=== PATIENT | female | born 1950 | race Caucasian/White ===

== ENCOUNTER 2020-08-11 17:02 | Observation (INO) ==
[2020-08-11] MEDS ORDERED: 0.9 % Sodium Chloride 1,000 ML IVC ONE (17:31)
[2020-08-11 18:27] LABS: INR 1.1; Prothrombin Time 12.5 Seconds (9.4-12.1)
[2020-08-11 18:45] LABS: Bilirubin,Urine Negative (Negative); Blood,Urine Negative (Negative); Clarity,Urine Clear (Clear); Color,Urine Colorless (Yellow); Glucose,Urine (UA) Normal (Normal); Ketones,Urine Negative (Negative); Leukocyte Esterase,Urine Moderate (Negative); Mucus,Urine Few per lpf (None-Few); Nitrite,Urine Negative (Negative); Protein,Urine Negative (Neg-Trace); RBC,Urine 0-3 per hpf (0-3); Specific Gravity,Urine 1.008 (1.010-1.025); Squamous Epithelial Cell,Urine Moderate per hpf (None-Few); Urobilinogen,Urine Normal (Normal); WBC,Urine 0-3 per hpf (0-3)
[2020-08-11 18:46] LABS: BUN/Creatinine Ratio 10 (6-26); Blood Urea Nitrogen 9 mg/dL (8-23); Calcium 9.5 mg/dL (8.6-10.3); Carbon Dioxide 30 mEq/L (23-29); Chloride 100 mEq/L (98-107); Glucose 105 mg/dL (70-105); Osmolality,Calculated 287 (280-300); Potassium 2.3 mEq/L (3.5-5.1); Sodium 139 mEq/L (136-145); Troponin I 0.03 ng/mL (< 0.04); eGFR For African Americans > 60 (> 60); eGFR For Non-African Americans > 60 (> 60)
[2020-08-11] MEDS ORDERED: Potassium Chloride 40 MEQ, Lidocaine 1% 2 ML in 0.9 % Sodium Chloride 500 ML IVPB ONE (18:55)
[2020-08-11 18:59] LABS: Basophils # 0.1 K/mcL (0.0-0.2); Basophils % 0.8 %; Eosinophils # 0.2 K/mcL (0.0-0.6); Eosinophils % 2.2 %; Hemoglobin 12.8 g/dL (11.5-15.4); Immature Granulocytes % 0.4 % (0-4); Lymphocytes # 3.9 K/mcL (0.6-4.6); Lymphocytes % 35.6 %; Mean Corpuscular HGB Conc 32.8 g/dL (31.6-35.5); Mean Corpuscular Hemoglobin 29.7 pg (28.0-33.3); Mean Corpuscular Volume 90.5 fL (83.0-100.0); Mean Platelet Volume 8.7 fL (9.4-12.4); Neutrophils # 5.7 K/mcL (1.6-8.9); Platelet Count 297 K/mcL (140-400); Red Blood Count 4.31 M/mcL (3.82-4.97); Red Cell Distribution Width 13.7 % (11.5-14.5); White Blood Count 10.9 K/mcL (4.3-11.1)
[2020-08-11] MEDS ORDERED: Morphine Sulfate 2 MG/ML SYRINGE IVP ONE (19:19)
[2020-08-11] MEDS ORDERED: Naloxone 0.4 MG/ML INJ IVP PRN (20:38)
[2020-08-11] MEDS ORDERED: Acetaminophen 325 MG TABLET PO PRN (20:38)
[2020-08-11] MEDS ORDERED: Ondansetron ODT 4 MG TAB.RAPDIS SL PRN (20:38)
[2020-08-11 20:45] LABS: Magnesium 1.8 mg/dL (1.6-2.6)
[2020-08-11 21:21] LABS: Adenovirus Not Detected (Not Detect); Bordetella Pertussis Not Detected (Not Detect); Chlamydophila pneumoniae Not Detected (Not Detect); Coronavirus 229E Not Detected (Not Detect); Coronavirus HKU1 Not Detected (Not Detect); Coronavirus NL63 Not Detected (Not Detect); Coronavirus OC43 Not Detected (Not Detect); Human Metapneumovirus Not Detected (Not Detect); Human Rhinovirus/Enterovirus DETECTED (Not Detect); Influenza A Subtype 2009 H1 Not Detected (Not Detect); Influenza B Not Detected (Not Detect); Mycoplasma pneumoniae Not Detected (Not Detect); Parainfluenza Virus 1 Not Detected (Not Detect); Parainfluenza Virus 2 Not Detected (Not Detect); Parainfluenza Virus 3 Not Detected (Not Detect); Parainfluenza Virus 4 Not Detected (Not Detect); Respiratory Syncytial Virus Not Detected (Not Detect); SARS-CoV-2 Not Detected (Not Detect)
[2020-08-11] MEDS ORDERED: Perflutren Lipid Microsphere 1.3 ML in 0.9 % Sodium Chloride 8.7 ML IVP PRN (22:22)
[2020-08-12 01:35] LABS: BUN/Creatinine Ratio 10 (6-26); Blood Urea Nitrogen 9 mg/dL (8-23); Calcium 8.7 mg/dL (8.6-10.3); Carbon Dioxide 29 mEq/L (23-29); Chloride 108 mEq/L (98-107); Glucose 136 mg/dL (70-105); Osmolality,Calculated 295 (280-300); Potassium 3.2 mEq/L (3.5-5.1); Sodium 142 mEq/L (136-145); eGFR For African Americans > 60 (> 60); eGFR For Non-African Americans 59 (> 60)
[2020-08-12] MEDS: 0.9 % Sodium Chloride 1,000 ML IVC SCH ×2 (03:08→11:10)
[2020-08-12 05:17] LABS: Basophils # 0.1 K/mcL (0.0-0.2); Basophils % 0.7 %; Eosinophils # 0.3 K/mcL (0.0-0.6); Eosinophils % 3.1 %; Hematocrit 32.9 % (35.3-44.9); Immature Granulocytes % 0.4 % (0-4); Lymphocytes # 3.1 K/mcL (0.6-4.6); Mean Corpuscular HGB Conc 32.2 g/dL (31.6-35.5); Mean Corpuscular Hemoglobin 29.4 pg (28.0-33.3); Mean Corpuscular Volume 91.4 fL (83.0-100.0); Mean Platelet Volume 8.4 fL (9.4-12.4); Monocytes # 0.8 K/mcL (0.0-1.3); Monocytes % 10.2 %; Platelet Count 244 K/mcL (140-400); Red Cell Distribution Width 13.9 % (11.5-14.5); Segmented Neutrophils % 48.6 %; White Blood Count 8.3 K/mcL (4.3-11.1)
[2020-08-12 05:20] LABS: Hemoglobin 10.6 g/dL (11.5-15.4)
[2020-08-12 05:36] LABS: BUN/Creatinine Ratio 12 (6-26); Blood Urea Nitrogen 10 mg/dL (8-23); Calcium 8.7 mg/dL (8.6-10.3); Carbon Dioxide 27 mEq/L (23-29); Chloride 108 mEq/L (98-107); Glucose 105 mg/dL (70-105); Magnesium 1.7 mg/dL (1.6-2.6); Osmolality,Calculated 291 (280-300); Potassium 3.5 mEq/L (3.5-5.1); Sodium 141 mEq/L (136-145); eGFR For African Americans > 60 (> 60); eGFR For Non-African Americans > 60 (> 60)
[2020-08-12 06:01] LABS: Folate > 22.3 ng/mL (3.0-16.0); Vitamin B12 183 pg/mL (250-1100)
[2020-08-12] MEDS ORDERED: Tiotropium 10 INH DOSE IH ONE (07:49)
[2020-08-12] MEDS: Budesonide/Formoterol 160/4.5 1 PUFF INH IH SCH ×2 (07:57→19:52)
[2020-08-12] MEDS: Tiotropium 10 INH DOSE IH SCH (07:57)
[2020-08-12] MEDS ORDERED: DilTIAZem CD (24hr) 240 MG CAP.ER.24H PO SCH (09:00)
[2020-08-12] MEDS: Loratadine 10 MG TABLET PO SCH (09:59)
[2020-08-12] MEDS: Cholecalciferol (D-3) 1,000 UNIT (25MCG) TABLET PO SCH (09:59)
[2020-08-12] MEDS: Folic Acid 1 MG TABLET PO SCH (09:59)
[2020-08-12] MEDS: Nicotine 14 MG PATCH.TD24 TD SCH (10:26)
[2020-08-13 00:32] LABS: Hematocrit 31.3 % (35.3-44.9); Hemoglobin 10.1 g/dL (11.5-15.4); Mean Corpuscular HGB Conc 32.3 g/dL (31.6-35.5); Mean Corpuscular Hemoglobin 29.9 pg (28.0-33.3); Mean Corpuscular Volume 92.6 fL (83.0-100.0); Mean Platelet Volume 8.6 fL (9.4-12.4); Platelet Count 215 K/mcL (140-400); Red Blood Count 3.38 M/mcL (3.82-4.97); Red Cell Distribution Width 14.1 % (11.5-14.5); White Blood Count 8.2 K/mcL (4.3-11.1)
[2020-08-13 00:51] LABS: BUN/Creatinine Ratio 15 (6-26); Blood Urea Nitrogen 13 mg/dL (8-23); Carbon Dioxide 27 mEq/L (23-29); Chloride 108 mEq/L (98-107); Glucose 106 mg/dL (70-105); Osmolality,Calculated 289 (280-300); Potassium 3.5 mEq/L (3.5-5.1); Sodium 139 mEq/L (136-145); eGFR For African Americans > 60 (> 60); eGFR For Non-African Americans > 60 (> 60)
[2020-08-13] MEDS ORDERED: *HR* Enoxaparin 40 MG/0.4 ML SYRINGE SQ SCH (06:00)
[2020-08-13 07:24] VITALS: BP 129/71
[2020-08-13] MEDS: Folic Acid 1 MG TABLET PO SCH (07:46)
[2020-08-13] MEDS: Loratadine 10 MG TABLET PO SCH (07:46)
[2020-08-13] MEDS: Nicotine 14 MG PATCH.TD24 TD SCH (07:47)
[2020-08-13] MEDS: Cholecalciferol (D-3) 1,000 UNIT (25MCG) TABLET PO SCH (07:47)
[2020-08-13] MEDS ORDERED: DilTIAZem CD (24hr) 180 MG CAP.ER.24H PO SCH (09:00)
[2020-08-13] MEDS ORDERED: Cyanocobalamin (B-12) 1,000 MCG TABLET PO SCH (09:00)
[2020-08-13] MEDS: Budesonide/Formoterol 160/4.5 1 PUFF INH IH SCH (09:11)
[2020-08-13] MEDS: Tiotropium 10 INH DOSE IH SCH (09:13)
== END 2020-08-13 09:51 | disposition home or self-care (01) ==
LOC: 2ANU 17:02 → EMEROOARM 17:02 → 2ANU 22:25
PROVIDERS: ADMIT Internal Medicine; ATTEND Internal Medicine

== ENCOUNTER 2022-03-23 19:24 | Inpatient (IN) ==
[2022-03-23] MEDS ORDERED: Ondansetron 4 MG/2 ML VIAL IVP PRN (21:13)
[2022-03-23] MEDS ORDERED: Acetaminophen 325 MG TABLET PO PRN (21:13)
[2022-03-23] MEDS ORDERED: Naloxone 0.4 MG/ML INJ IVP PRN (21:13)
[2022-03-23 22:24] LABS: Basophils % 0.3 %; Eosinophils # 0.1 K/mcL (0.0-0.6); Eosinophils % 0.6 %; Hematocrit 21.8 % (35.3-44.9); Hemoglobin 6.9 g/dL (11.5-15.4); Immature Granulocytes % 2.5 % (0-4); Immature Platelets 11.7 % (1.1-6.1); Lymphocytes # 1.9 K/mcL (0.6-4.6); Lymphocytes % 19.5 %; Mean Corpuscular HGB Conc 31.7 g/dL (31.6-35.5); Mean Corpuscular Hemoglobin 31.2 pg (28.0-33.3); Mean Corpuscular Volume 98.6 fL (83.0-100.0); Mean Platelet Volume 11.4 fL (9.4-12.4); Monocytes # 0.9 K/mcL (0.0-1.3); Monocytes % 8.6 %; Neutrophils # 6.8 K/mcL (1.6-8.9); Red Blood Count 2.21 M/mcL (3.82-4.97); Red Cell Distribution Width 15.3 % (11.5-14.5); Segmented Neutrophils % 68.5 %; White Blood Count 9.9 K/mcL (4.3-11.1)
[2022-03-23 22:26] LABS: Platelet Count 22 K/mcL (140-400)
[2022-03-23] MEDS ORDERED: Ringers Solution, Lactated 1,000 ML IVC SCH (22:30)
[2022-03-23 22:36] LABS: Calcium 7.9 mg/dL (8.6-10.3); Magnesium 1.7 mg/dL (1.6-2.6); Potassium 3.2 mEq/L (3.5-5.1)
[2022-03-24 00:11] LABS: Fibrinogen 502 mg/dL (169-393)
[2022-03-24 00:12] LABS: D-Dimer 822 ng/mLFEU (0-500)
[2022-03-24] MEDS ORDERED: 0.9 % Sodium Chloride 250 ML ONE ×3 (00:40→06:36)
[2022-03-24 03:45] LABS: Basophils % 0.4 %; Mean Corpuscular Volume 97.2 fL (83.0-100.0); Mean Platelet Volume 11.5 fL (9.4-12.4); Red Cell Distribution Width 15.5 % (11.5-14.5)
[2022-03-24 03:47] LABS: Eosinophils # 0.1 K/mcL (0.0-0.6); Eosinophils % 0.6 %; Hematocrit 24.6 % (35.3-44.9); Immature Granulocytes % 3.5 % (0-4); Immature Platelets 10.5 % (1.1-6.1); Lymphocytes # 2.1 K/mcL (0.6-4.6); Lymphocytes % 21.6 %; Mean Corpuscular HGB Conc 32.5 g/dL (31.6-35.5); Mean Corpuscular Hemoglobin 31.6 pg (28.0-33.3); Monocytes # 0.8 K/mcL (0.0-1.3); Monocytes % 8.2 %; Neutrophils # 6.5 K/mcL (1.6-8.9); Red Blood Count 2.53 M/mcL (3.82-4.97); Segmented Neutrophils % 65.7 %; White Blood Count 9.9 K/mcL (4.3-11.1)
[2022-03-24 03:48] LABS: Platelet Count 19 K/mcL (140-400)
[2022-03-24 03:53] LABS: INR 1.8; Prothrombin Time 19.5 Seconds (9.4-12.1)
[2022-03-24 03:55] LABS: Activated Partial Thrombo Time 35.9 Seconds (26.0-36.0)
[2022-03-24 04:03] LABS: Calcium 8.1 mg/dL (8.6-10.3); Magnesium 1.8 mg/dL (1.6-2.6); Potassium 3.8 mEq/L (3.5-5.1)
[2022-03-24] MEDS: Pantoprazole 40 MG VIAL IVP SCH ×2 (05:36→17:51)
[2022-03-24] MEDS: Levothyroxine 25 MCG TABLET PO SCH (05:36)
[2022-03-24] MEDS ORDERED: Furosemide 20 MG/2 ML VIAL IVP ONE (06:18)
[2022-03-24] MEDS ORDERED: Tiotropium 10 INH DOSE IH ONE (07:25)
[2022-03-24] MEDS: Tiotropium 10 INH DOSE IH SCH (07:28)
[2022-03-24] MEDS ORDERED: FLUTICASONE FUROATE IN SCH (09:00)
[2022-03-24 10:09] LABS: Red Blood Count 2.59 M/mcL (3.82-4.97)
[2022-03-24 10:11] LABS: Hematocrit 24.7 % (35.3-44.9); Hemoglobin 8.1 g/dL (11.5-15.4); Mean Corpuscular HGB Conc 32.8 g/dL (31.6-35.5); Mean Corpuscular Hemoglobin 31.3 pg (28.0-33.3); Mean Corpuscular Volume 95.4 fL (83.0-100.0); Mean Platelet Volume 11.7 fL (9.4-12.4); Red Cell Distribution Width 15.6 % (11.5-14.5); White Blood Count 11.3 K/mcL (4.3-11.1)
[2022-03-24 10:11] LABS: Mean Platelet Volume 11.1 fL (9.4-12.4)
[2022-03-24 10:31] LABS: % Iron Saturation 22 % (15-50); Iron 47 mcg/dL (50-170); Transferrin 153 mg/dL (203-362)
[2022-03-24] MEDS ORDERED: Iopamidol - 370 500 ML MLS IVP ONE (10:37)
[2022-03-24 10:53] LABS: Vitamin B12 921 pg/mL (250-1100)
[2022-03-24 11:13] LABS: Ferritin 366 ng/mL (10-120)
[2022-03-24 12:56] LABS: Folate > 22.3 ng/mL (3.0-16.0)
[2022-03-24] MEDS: predniSONE 20 MG TABLET PO SCH (16:25)
[2022-03-24 17:13] LABS: Hepatitis C Virus Antibody Nonreactive (Nonreactive)
[2022-03-24 17:16] LABS: Hepatitis A Antibody IgM Nonreactive (Nonreactive); Hepatitis B Core IgM Nonreactive (Nonreactive)
[2022-03-24] MEDS: *HR* HYDROcodone/Acet 5/325 mg TABLET PO PRN (17:51)
[2022-03-24 17:55] LABS: Hepatitis B Surface Antigen Nonreactive (Nonreactive)
[2022-03-24] MEDS: Budesonide/Formoterol 80/4.5 1 PUFF INH IH SCH (19:43)
[2022-03-24] MEDS: ALPRAZolam 0.5 MG TABLET PO SCH (20:04)
[2022-03-24] MEDS: Mirtazapine 15 MG TABLET PO SCH (20:04)
[2022-03-25] MEDS: Pantoprazole 40 MG VIAL IVP SCH ×2 (05:20→18:25)
[2022-03-25] MEDS: Levothyroxine 25 MCG TABLET PO SCH (05:20)
[2022-03-25 05:40] LABS: Basophils % 0.2 %; Red Cell Distribution Width 15.6 % (11.5-14.5)
[2022-03-25 05:42] LABS: Hematocrit 23.1 % (35.3-44.9); Hemoglobin 7.6 g/dL (11.5-15.4); Immature Granulocytes % 2.2 % (0-4); Immature Platelets 8.9 % (1.1-6.1); Lymphocytes # 0.8 K/mcL (0.6-4.6); Lymphocytes % 13.3 %; Mean Corpuscular HGB Conc 32.9 g/dL (31.6-35.5); Mean Corpuscular Hemoglobin 31.8 pg (28.0-33.3); Mean Corpuscular Volume 96.7 fL (83.0-100.0); Mean Platelet Volume 10.6 fL (9.4-12.4); Monocytes # 0.2 K/mcL (0.0-1.3); Monocytes % 3.2 %; Red Blood Count 2.39 M/mcL (3.82-4.97); Segmented Neutrophils % 81.1 %; White Blood Count 6.2 K/mcL (4.3-11.1)
[2022-03-25 05:51] LABS: Platelet Count 43 K/mcL (140-400)
[2022-03-25 05:58] LABS: Calcium 8.7 mg/dL (8.6-10.3); Potassium 3.7 mEq/L (3.5-5.1)
[2022-03-25] MEDS: Tiotropium 10 INH DOSE IH SCH (07:49)
[2022-03-25] MEDS: Budesonide/Formoterol 80/4.5 1 PUFF INH IH SCH ×2 (07:50→20:39)
[2022-03-25] MEDS: ALPRAZolam 0.5 MG TABLET PO SCH ×3 (09:27→20:15)
[2022-03-25] MEDS: predniSONE 20 MG TABLET PO SCH (09:28)
[2022-03-25] MEDS: Magnesium Oxide 400 MG TABLET PO SCH (09:28)
[2022-03-25] MEDS: *HR* Amiodarone 200 MG TABLET PO SCH (09:28)
[2022-03-25] MEDS: Furosemide 20 MG TABLET PO SCH (09:28)
[2022-03-25] MEDS: Mirtazapine 15 MG TABLET PO SCH (20:16)
[2022-03-25] MEDS ORDERED: 0.9 % Sodium Chloride 250 ML ONE (20:50)
[2022-03-26] MEDS: *HR* HYDROcodone/Acet 5/325 mg TABLET PO PRN ×2 (00:25→19:37)
[2022-03-26] MEDS: Melatonin 3 MG TABLET PO PRN ×2 (00:25→19:36)
[2022-03-26 03:59] LABS: Basophils % 0.2 %; Hematocrit 24.8 % (35.3-44.9); Hemoglobin 8.1 g/dL (11.5-15.4); Immature Granulocytes % 1.9 % (0-4); Lymphocytes # 1.2 K/mcL (0.6-4.6); Lymphocytes % 9.8 %; Mean Corpuscular HGB Conc 32.7 g/dL (31.6-35.5); Mean Corpuscular Hemoglobin 30.3 pg (28.0-33.3); Mean Corpuscular Volume 92.9 fL (83.0-100.0); Mean Platelet Volume 9.9 fL (9.4-12.4); Monocytes # 0.8 K/mcL (0.0-1.3); Monocytes % 6.2 %; Red Blood Count 2.67 M/mcL (3.82-4.97); Red Cell Distribution Width 16.1 % (11.5-14.5); Segmented Neutrophils % 81.9 %
[2022-03-26 04:00] LABS: Platelet Count 93 K/mcL (140-400); White Blood Count 12.2 K/mcL (4.3-11.1)
[2022-03-26 04:08] LABS: Calcium 8.8 mg/dL (8.6-10.3); Potassium 3.4 mEq/L (3.5-5.1)
[2022-03-26] MEDS: Levothyroxine 25 MCG TABLET PO SCH (05:47)
[2022-03-26] MEDS: Pantoprazole 40 MG VIAL IVP SCH ×2 (05:47→17:44)
[2022-03-26] MEDS: Budesonide/Formoterol 80/4.5 1 PUFF INH IH SCH ×2 (07:39→20:05)
[2022-03-26] MEDS: Tiotropium 10 INH DOSE IH SCH (07:40)
[2022-03-26] MEDS: ALPRAZolam 0.5 MG TABLET PO SCH ×3 (08:26→19:37)
[2022-03-26] MEDS: predniSONE 20 MG TABLET PO SCH (08:27)
[2022-03-26] MEDS: *HR* Amiodarone 200 MG TABLET PO SCH (08:27)
[2022-03-26] MEDS: Magnesium Oxide 400 MG TABLET PO SCH (08:27)
[2022-03-26] MEDS: Furosemide 20 MG TABLET PO SCH (08:27)
[2022-03-26] MEDS: Mirtazapine 15 MG TABLET PO SCH (19:37)
[2022-03-27] MEDS: Pantoprazole 40 MG VIAL IVP SCH ×2 (05:35→17:23)
[2022-03-27] MEDS: Levothyroxine 25 MCG TABLET PO SCH (05:35)
[2022-03-27 05:57] LABS: Basophils % 0.2 %; Eosinophils % 0.1 %; Hemoglobin 8.8 g/dL (11.5-15.4); Lymphocytes # 1.7 K/mcL (0.6-4.6); Lymphocytes % 15.6 %; Mean Corpuscular HGB Conc 32.6 g/dL (31.6-35.5); Mean Corpuscular Hemoglobin 31.3 pg (28.0-33.3); Mean Corpuscular Volume 96.1 fL (83.0-100.0); Mean Platelet Volume 9.3 fL (9.4-12.4); Monocytes # 0.8 K/mcL (0.0-1.3); Neutrophils # 8.3 K/mcL (1.6-8.9); Platelet Count 115 K/mcL (140-400); Red Blood Count 2.81 M/mcL (3.82-4.97); Red Cell Distribution Width 16.3 % (11.5-14.5); Segmented Neutrophils % 75.1 %; White Blood Count 11.1 K/mcL (4.3-11.1)
[2022-03-27 06:18] LABS: Calcium 8.8 mg/dL (8.6-10.3)
[2022-03-27] MEDS: Tiotropium 10 INH DOSE IH SCH (07:35)
[2022-03-27] MEDS: Budesonide/Formoterol 80/4.5 1 PUFF INH IH SCH ×2 (07:35→20:06)
[2022-03-27] MEDS: predniSONE 20 MG TABLET PO SCH (09:07)
[2022-03-27] MEDS: Furosemide 20 MG TABLET PO SCH (09:07)
[2022-03-27] MEDS: ALPRAZolam 0.5 MG TABLET PO SCH ×3 (09:07→20:20)
[2022-03-27] MEDS: Magnesium Oxide 400 MG TABLET PO SCH (09:07)
[2022-03-27] MEDS: *HR* Amiodarone 200 MG TABLET PO SCH (09:07)
[2022-03-27] MEDS ORDERED: Sennosides/Docusate Sodium TABLET PO ONE (10:20)
[2022-03-27] MEDS ORDERED: Sennosides/Docusate Sodium TABLET PO PRN (10:20)
[2022-03-27] MEDS: polyethylene glycoL 3350 17 GM POWD.PACK PO SCH (11:02)
[2022-03-27 17:10] LABS: Bacteria,Urine Few per hpf (None-Few); Bilirubin,Urine Negative (Negative); Blood,Urine Small (Negative); Budding Yeast,Urine Many per hpf (None Seen); Clarity,Urine Turbid (Clear); Color,Urine Yellow (Yellow); Glucose,Urine (UA) Normal (Normal); Hyaline Casts,Urine Few per lpf (None Seen); Ketones,Urine Negative (Negative); Leukocyte Esterase,Urine Large (Negative); Mucus,Urine Few per lpf (None-Few); Nitrite,Urine Negative (Negative); Protein,Urine Trace mg/dL (Neg-Trace); Renal Epithelial Cells,Urine Few per hpf (None-Few); Specific Gravity,Urine 1.021 (1.010-1.025); Squamous Epithelial Cell,Urine Moderate per hpf (None-Few); Transitional Epi Cells,Urine Few per hpf (None-Few); WBC,Urine TNTC per hpf (0-3)
[2022-03-27] MEDS: *HR* HYDROcodone/Acet 5/325 mg TABLET PO PRN ×2 (17:33→23:52)
[2022-03-27] MEDS: Melatonin 3 MG TABLET PO PRN (20:20)
[2022-03-27] MEDS: Mirtazapine 15 MG TABLET PO SCH (20:20)
[2022-03-27] MEDS: Cefepime HCl 2,000 MG in 0.9 % Sodium Chloride 10 ML IVP SCH (20:24)
[2022-03-28] MEDS: Cefepime HCl 2,000 MG in 0.9 % Sodium Chloride 10 ML IVP SCH ×2 (06:01→16:59)
[2022-03-28] MEDS: Pantoprazole 40 MG VIAL IVP SCH (06:02)
[2022-03-28] MEDS: Levothyroxine 25 MCG TABLET PO SCH (06:27)
[2022-03-28 06:49] LABS: Basophils % 0.2 %; Hemoglobin 8.4 g/dL (11.5-15.4); Immature Granulocytes % 2.2 % (0-4); Lymphocytes # 1.9 K/mcL (0.6-4.6); Lymphocytes % 18.2 %; Mean Corpuscular HGB Conc 31.1 g/dL (31.6-35.5); Mean Corpuscular Hemoglobin 30.2 pg (28.0-33.3); Mean Corpuscular Volume 97.1 fL (83.0-100.0); Mean Platelet Volume 9.2 fL (9.4-12.4); Monocytes # 0.8 K/mcL (0.0-1.3); Monocytes % 7.7 %; Neutrophils # 7.6 K/mcL (1.6-8.9); Platelet Count 139 K/mcL (140-400); Red Blood Count 2.78 M/mcL (3.82-4.97); Red Cell Distribution Width 16.3 % (11.5-14.5); Segmented Neutrophils % 71.7 %; White Blood Count 10.6 K/mcL (4.3-11.1)
[2022-03-28] MEDS: Tiotropium 10 INH DOSE IH SCH (07:21)
[2022-03-28] MEDS: Budesonide/Formoterol 80/4.5 1 PUFF INH IH SCH ×2 (07:21→21:57)
[2022-03-28 07:41] LABS: Calcium 8.4 mg/dL (8.6-10.3); Potassium 4.5 mEq/L (3.5-5.1)
[2022-03-28] MEDS: predniSONE 20 MG TABLET PO SCH (09:32)
[2022-03-28] MEDS: *HR* Amiodarone 200 MG TABLET PO SCH (09:33)
[2022-03-28] MEDS: Furosemide 20 MG TABLET PO SCH (09:33)
[2022-03-28] MEDS: Magnesium Oxide 400 MG TABLET PO SCH (09:33)
[2022-03-28] MEDS: ALPRAZolam 0.5 MG TABLET PO SCH ×3 (09:33→21:07)
[2022-03-28] MEDS: polyethylene glycoL 3350 17 GM POWD.PACK PO SCH ×2 (09:34→09:48)
[2022-03-28] MEDS ORDERED: *HR* Propofol 200 MG/20 ML VIAL IVP ONE (10:54)
[2022-03-28] MEDS ORDERED: Lidocaine -MPF 2% 5 ML VIAL ONE ×2 (10:54→11:25)
[2022-03-28] MEDS: *HR* HYDROcodone/Acet 5/325 mg TABLET PO PRN (16:59)
[2022-03-28] MEDS: Mirtazapine 15 MG TABLET PO SCH (21:07)
[2022-03-29] MEDS: *HR* HYDROcodone/Acet 5/325 mg TABLET PO PRN ×2 (05:50→16:53)
[2022-03-29] MEDS: Levothyroxine 25 MCG TABLET PO SCH (05:50)
[2022-03-29] MEDS: Cefepime HCl 2,000 MG in 0.9 % Sodium Chloride 10 ML IVP SCH ×2 (05:50→18:34)
[2022-03-29] MEDS: Budesonide/Formoterol 80/4.5 1 PUFF INH IH SCH ×2 (07:25→20:12)
[2022-03-29] MEDS: predniSONE 20 MG TABLET PO SCH (08:23)
[2022-03-29] MEDS: ALPRAZolam 0.5 MG TABLET PO SCH ×3 (08:23→21:05)
[2022-03-29] MEDS: Magnesium Oxide 400 MG TABLET PO SCH (08:23)
[2022-03-29] MEDS: polyethylene glycoL 3350 17 GM POWD.PACK PO SCH (08:23)
[2022-03-29] MEDS: Furosemide 20 MG TABLET PO SCH (08:23)
[2022-03-29] MEDS: *HR* Amiodarone 200 MG TABLET PO SCH (08:23)
[2022-03-29] MEDS: Tiotropium 10 INH DOSE IH SCH (11:07)
[2022-03-29 13:26] LABS: Basophils # 0.1 K/mcL (0.0-0.2); Basophils % 0.4 %; Eosinophils % 0.1 %; Hematocrit 36.2 % (35.3-44.9); Immature Granulocytes % 4.2 % (0-4); Lymphocytes % 7.1 %; Mean Corpuscular HGB Conc 31.2 g/dL (31.6-35.5); Mean Corpuscular Hemoglobin 30.5 pg (28.0-33.3); Mean Corpuscular Volume 97.8 fL (83.0-100.0); Mean Platelet Volume 9.1 fL (9.4-12.4); Monocytes # 0.6 K/mcL (0.0-1.3); Monocytes % 4.1 %; Neutrophils # 11.8 K/mcL (1.6-8.9); Platelet Count 178 K/mcL (140-400); Red Cell Distribution Width 16.1 % (11.5-14.5); Segmented Neutrophils % 84.1 %
[2022-03-29 13:52] LABS: Calcium 9.3 mg/dL (8.6-10.3)
[2022-03-29 13:59] LABS: Hemoglobin 11.3 g/dL (11.5-15.4)
[2022-03-29 14:46] LABS: Immature Reticulocyte % 20.9 % (11.0-38.0); Retculocyte # 0.11 M/mcL (0.05-0.10); Reticulocyte % 3.1 % (1.6-2.8)
[2022-03-29] MEDS: Mirtazapine 15 MG TABLET PO SCH (21:05)
[2022-03-29] MEDS: Apixaban 2.5 MG TABLET PO SCH (21:05)
[2022-03-29] MEDS: Melatonin 3 MG TABLET PO PRN (21:05)
[2022-03-29 23:53] LABS: HIV-1 Ab Supplemental NEGATIVE (Negative); HIV-2 Ab Supplemental NEGATIVE (Negative)
[2022-03-30] MEDS: Levothyroxine 25 MCG TABLET PO SCH (05:54)
[2022-03-30] MEDS: Cefepime HCl 2,000 MG in 0.9 % Sodium Chloride 10 ML IVP SCH (05:55)
[2022-03-30] MEDS: Budesonide/Formoterol 80/4.5 1 PUFF INH IH SCH (07:36)
[2022-03-30] MEDS: Tiotropium 10 INH DOSE IH SCH (07:36)
[2022-03-30 08:07] LABS: Hematocrit 31.4 % (35.3-44.9); Mean Corpuscular HGB Conc 31.8 g/dL (31.6-35.5); Mean Corpuscular Hemoglobin 30.8 pg (28.0-33.3); Mean Corpuscular Volume 96.6 fL (83.0-100.0); Mean Platelet Volume 9.1 fL (9.4-12.4); Nucleated Red Blood Cells 0.2 /100 WBC (0); Platelet Count 180 K/mcL (140-400); Red Blood Count 3.25 M/mcL (3.82-4.97); Red Cell Distribution Width 16.3 % (11.5-14.5)
[2022-03-30 08:26] LABS: Calcium 8.6 mg/dL (8.6-10.3); Potassium 3.9 mEq/L (3.5-5.1)
[2022-03-30] MEDS: ALPRAZolam 0.5 MG TABLET PO SCH ×2 (08:35→14:33)
[2022-03-30] MEDS: Furosemide 20 MG TABLET PO SCH (08:35)
[2022-03-30] MEDS: predniSONE 20 MG TABLET PO SCH (08:36)
[2022-03-30] MEDS: *HR* Amiodarone 200 MG TABLET PO SCH (08:38)
[2022-03-30] MEDS: Apixaban 2.5 MG TABLET PO SCH (08:38)
[2022-03-30] MEDS: Magnesium Oxide 400 MG TABLET PO SCH (08:38)
[2022-03-30] MEDS: polyethylene glycoL 3350 17 GM POWD.PACK PO SCH (09:38)
[2022-03-30 10:54] LABS: Lymphocytes # 3.9 K/mcL (0.6-4.6); Neutrophils # 7.8 K/mcL (1.6-8.9); Platelet Estimate Normal (Normal)
[2022-03-30 12:35] LABS: Influenza A PCR Negative (Negative); Influenza B PCR Negative (Negative); Resp. Syncytial Virus PCR Negative (Negative)
[2022-03-30 12:36] LABS: SARS-CoV-2 by PCR (In House) Negative (Negative)
[2022-03-30] MEDS ORDERED: levoFLOXacin 750 MG TABLET PO SCH (14:15)
[2022-03-30 14:25] LABS: Kappa Qnt Free Light Chains 16.07 mg/L (3.30-19.40); Lambda Qnt Free Light Chains 21.24 mg/L (5.71-26.30)
[2022-03-30] MEDS: *HR* HYDROcodone/Acet 5/325 mg TABLET PO PRN (14:33)
[2022-03-30 16:08] VITALS: BP 134/74; PULSE 79; TEMP 98; O2SAT 95
== END 2022-03-30 17:53 | disposition other institution (70) | DRG 812 ==
LOC: 2NNU → SUATTDRO 21:31 → 3ANU 03-28 12:10
PROVIDERS: ADMIT Internal Medicine; ATTEND Internal Medicine
PROC: ENDOEDS (2022-03-28 10:30)